=== PATIENT | female | born 1985 | race Caucasian/White ===

== ENCOUNTER 2016-11-14 14:14 | Emergency (ER) | payer MEDICARE, MEDICAID ==
[2016-11-14 14:43] VITALS: BP 125/73
--- NOTE | 2016-11-14 15:06 | EDM.PDOC ---
ED HPI Behavioral Health - General Chief Complaint: Behavioral/Psych Stated Complaint: EVAL/ WITH SCHIZOAFFECTIVE DISORDER Time Seen by Provider: 11/14/16 14:55 Source: Reports: Patient, RN notes reviewed Exam Limitations: Reports: No limitations - History of Present Illness INITIAL COMMENTS - FREE TEXT/NARRATIVE: 30-year-old female presents emergency department a complaint of suicidal ideation, she has a plan in that he would overdose on pain medications of tramadol, she is interested in inpatient treatment does not feel safe at home - Related Data Allergies Allergy/AdvReac Type Severity Reaction Status Date / Time lurasidone HCl [From Latuda] Allergy Other Verified 10/16/16 17:50 Home Medications: Home Meds Paliperidone Palmitate [Invega Sustenna] 156 mg IM ONETIME 09/23/13 [History] LORazepam [LORazepam] 1 tab PO ASDIRECTED 10/16/16 [History] Past Medical History Other Gastrointestinal History: "rash in stomach d/t allergy to foods" Other OB/BYN History: patient "does not get a period". Neurological History: Reports: Migraines Psychiatric History: Reports: Anxiety, Depression, Emotional problems, Hallucinations, Psych Hospitalization(s), Suicide attempt, Suicidal ideation Other Psychiatric History: schizo effective disorder - Infectious Disease History Infectious Disease History: Reports: Chicken pox - Past Surgical History Female Surgical History: Reports: Cervical cryotherapy Social & Family History - Tobacco Use Smoking Status *Q: Current Every Day Smoker Years of Tobacco use: 15 Packs/Tins Daily: 2 Month Tobacco Last Used: september Second Hand Smoke Exposure: Yes - Caffeine Use Caffeine Use: Reports: Coffee, Energy drinks, Soda - Alcohol Use Days Per Week of Alcohol Use: 0 - Recreational Drug Use Recreational Drug Use: No Recreational Drug Type: Reports: Marijuana/Hashish Recreational Drug Use Frequency: Monthly ED ROS GENERAL - Review of Systems Review Of Systems: See Below Constitutional: Reports: no symptoms Psychiatric: Reports: Depression, Suicidal ideation ED EXAM, BEHAVIORAL HEALTH - Physical Exam Exam: See Below Exam Limited By: No limitations General Appearance: alert, WD/WN, no apparent distress Eye Exam: bilateral eye: normal inspection Respiratory/Chest: no respiratory distress, lungs clear, normal breath sounds, no accessory muscle use Cardiovascular: regular rate, rhythm, no murmur Psychiatric: alert, flat affect, withdrawn, suicidal plan, suicidal thoughts COURSE, BEHAVIORAL HEALTH COMP - Course Vital Signs: Last Vital Signs Temp 96.6 F 11/14/16 14:42 Pulse 107 H 11/14/16 14:42 Resp 16 11/14/16 14:42 BP 125/73 11/14/16 14:42 Pulse Ox 97 11/14/16 14:42 Orders, Labs, Meds: Laboratory Tests 11/14/16 11/14/16 11/14/16 Range/Units 15:09 15:09 15:09 WBC (4.5-11.0) K/uL RBC (3.30-5.50) M/uL Hgb (12.0-15.0) g/dL Hct (36.0-48.0) % MCV (80-98) fL MCH (27-31) pg MCHC (32-36) % Plt Count (150-400) K/uL Neut % (Auto) (36-66) % Lymph % (Auto) (24-44) % [place] % (Auto) (2-6) % Eos % (Auto) (2-4) % Baso % (Auto) (0-1) % Sodium (140-148) mmol/L Potassium (3.6-5.2) mmol/L Chloride (100-108) mmol/L Carbon Dioxide (21-32) mmol/L Anion Gap (5.0-14.0) mmol/L BUN (7-18) mg/dL Creatinine (0.6-1.0) mg/dL Est Cr Clr Drug Dosing mL/min Estimated GFR (MDRD) (>60) Glucose (74-106) mg/dL Calcium (8.5-10.1) mg/dL Total Bilirubin (0.2-1.0) mg/dL AST (15-37) U/L ALT (12-78) U/L Alkaline Phosphatase (46-116) U/L Total Protein (6.4-8.2) g/dL Albumin (3.4-5.0) g/dL Globulin (2.3-3.5) g/dL Albumin/Globulin Ratio (1.2-2.2) TSH, Ultra Sensitive (0.358-3.740) uIU/mL Urine Color Yellow Urine Appearance Clear Urine pH 7.0 (4.5-8.0) Ur Specific [place] 1.010 (1.008-1.030) Urine Protein Negative (NEGATIVE) mg/dL Urine Glucose (UA) Normal (NEGATIVE) mg/dL Urine Ketones Negative (NEGATIVE) mg/dL Urine Occult Blood Negative (NEGATIVE) Urine Nitrite Negative (NEGATIVE) Urine Bilirubin Negative (NEGATIVE) Urine Urobilinogen Normal (NORMAL) mg/dL Ur Leukocyte Esterase Negative (NEGATIVE) Urine HCG, Qual Negative Urine Opiates Screen Negative (NEGATIVE) Ur Oxycodone Screen Negative (NEGATIVE) Urine Methadone Screen Negative (NEGATIVE) Ur Propoxyphene Screen Negative (NEGATIVE) Ur Barbiturates Screen Negative (NEGATIVE) Ur Tricyclics Screen Negative (NEGATIVE) Ur Phencyclidine Scrn Negative (NEGATIVE) Ur Amphetamine Screen Negative (NEGATIVE) U Methamphetamines Scrn Negative (NEGATIVE) Urine MDMA Screen Negative (NEGATIVE) U Benzodiazepines Scrn Negative (NEGATIVE) U Cocaine Metab Screen Negative (NEGATIVE) U Marijuana (THC) Screen Negative (NEGATIVE) Ethyl Alcohol mg/dL 11/14/16 11/14/16 11/14/16 Range/Units 15:11 15:11 15:11 WBC 8.5 (4.5-11.0) K/uL RBC 5.12 (3.30-5.50) M/uL Hgb 15.7 H (12.0-15.0) g/dL Hct 47.5 (36.0-48.0) % MCV 93 (80-98) fL MCH 31 (27-31) pg MCHC 33 (32-36) % Plt Count 226 (150-400) K/uL Neut % (Auto) 72 H (36-66) % Lymph % (Auto) 21 L (24-44) % [place] % (Auto) 5 (2-6) % Eos % (Auto) 1 L (2-4) % Baso % (Auto) 1 (0-1) % Sodium 139 L (140-148) mmol/L Potassium 3.7 (3.6-5.2) mmol/L Chloride 104 (100-108) mmol/L Carbon Dioxide 25 (21-32) mmol/L Anion Gap 13.7 (5.0-14.0) mmol/L BUN 8 (7-18) mg/dL Creatinine 0.9 (0.6-1.0) mg/dL Est Cr Clr Drug Dosing 80.22 mL/min Estimated GFR (MDRD) > 60 (>60) Glucose 143 H (74-106) mg/dL Calcium 8.6 (8.5-10.1) mg/dL Total Bilirubin 1.3 H (0.2-1.0) mg/dL AST 18 (15-37) U/L ALT 36 (12-78) U/L Alkaline Phosphatase 73 (46-116) U/L Total Protein 7.1 (6.4-8.2) g/dL Albumin 4.0 (3.4-5.0) g/dL Globulin 3.1 (2.3-3.5) g/dL Albumin/Globulin Ratio 1.3 (1.2-2.2) TSH, Ultra Sensitive (0.358-3.740) uIU/mL Urine Color Urine Appearance Urine pH (4.5-8.0) Ur Specific [place] (1.008-1.030) Urine Protein (NEGATIVE) mg/dL Urine Glucose (UA) (NEGATIVE) mg/dL Urine Ketones (NEGATIVE) mg/dL Urine Occult Blood (NEGATIVE) Urine Nitrite (NEGATIVE) Urine Bilirubin (NEGATIVE) Urine Urobilinogen (NORMAL) mg/dL Ur Leukocyte Esterase (NEGATIVE) Urine HCG, Qual Urine Opiates Screen (NEGATIVE) Ur Oxycodone Screen (NEGATIVE) Urine Methadone Screen (NEGATIVE) Ur Propoxyphene Screen (NEGATIVE) Ur Barbiturates Screen (NEGATIVE) Ur Tricyclics Screen (NEGATIVE) Ur Phencyclidine Scrn (NEGATIVE) Ur Amphetamine Screen (NEGATIVE) U Methamphetamines Scrn (NEGATIVE) Urine MDMA Screen (NEGATIVE) U Benzodiazepines Scrn (NEGATIVE) U Cocaine Metab Screen (NEGATIVE) U Marijuana (THC) Screen (NEGATIVE) Ethyl Alcohol < 3 mg/dL 11/14/16 Range/Units 16:00 WBC (4.5-11.0) K/uL RBC (3.30-5.50) M/uL Hgb (12.0-15.0) g/dL Hct (36.0-48.0) % MCV (80-98) fL MCH (27-31) pg MCHC (32-36) % Plt Count (150-400) K/uL Neut % (Auto) (36-66) % Lymph % (Auto) (24-44) % [place] % (Auto) (2-6) % Eos % (Auto) (2-4) % Baso % (Auto) (0-1) % Sodium (140-148) mmol/L Potassium (3.6-5.2) mmol/L Chloride (100-108) mmol/L Carbon Dioxide (21-32) mmol/L Anion Gap (5.0-14.0) mmol/L BUN (7-18) mg/dL Creatinine (0.6-1.0) mg/dL Est Cr Clr Drug Dosing mL/min Estimated GFR (MDRD) (>60) Glucose (74-106) mg/dL Calcium (8.5-10.1) mg/dL Total Bilirubin (0.2-1.0) mg/dL AST (15-37) U/L ALT (12-78) U/L Alkaline Phosphatase (46-116) U/L Total Protein (6.4-8.2) g/dL Albumin (3.4-5.0) g/dL Globulin (2.3-3.5) g/dL Albumin/Globulin Ratio (1.2-2.2) TSH, Ultra Sensitive 1.190 (0.358-3.740) uIU/mL Urine Color Urine Appearance Urine pH (4.5-8.0) Ur Specific [place] (1.008-1.030) Urine Protein (NEGATIVE) mg/dL Urine Glucose (UA) (NEGATIVE) mg/dL Urine Ketones (NEGATIVE) mg/dL Urine Occult Blood (NEGATIVE) Urine Nitrite (NEGATIVE) Urine Bilirubin (NEGATIVE) Urine Urobilinogen (NORMAL) mg/dL Ur Leukocyte Esterase (NEGATIVE) Urine HCG, Qual Urine Opiates Screen (NEGATIVE) Ur Oxycodone Screen (NEGATIVE) Urine Methadone Screen (NEGATIVE) Ur Propoxyphene Screen (NEGATIVE) Ur Barbiturates Screen (NEGATIVE) Ur Tricyclics Screen (NEGATIVE) Ur Phencyclidine Scrn (NEGATIVE) Ur Amphetamine Screen (NEGATIVE) U Methamphetamines Scrn (NEGATIVE) Urine MDMA Screen (NEGATIVE) U Benzodiazepines Scrn (NEGATIVE) U Cocaine Metab Screen (NEGATIVE) U Marijuana (THC) Screen (NEGATIVE) Ethyl Alcohol mg/dL Medications Discontinued Medications Generic Name Dose Route Start Last Admin Trade Name Freq PRN Reason Stop Dose Admin Nicotine 21 mg 11/14/16 15:11 11/14/16 15:25 Habitrol TRDERM 11/14/16 15:12 21 mg ONETIME ONE Administration Departure - Departure Time of Disposition: 16:56 Disposition: DC/Tfer to Psych Hosp/Unit 65 Condition: good Clinical Impression: Suicidal ideation Forms: ED Department Discharge - Assessment/Plan Plan: Assessment Acuity = acute Site and laterality = suicidal ideation with plan complicated in a patient with schizoaffective disorder Etiology = probably related to ongoing depression Manifestations = none Location of injury = home Lab values = CBC, CMP, thyroid, urinalysis, urine drug screen and alcohol all normal Plan We were able to gain acceptance at [facility] she will be transported via [facility] psychiatric transport Patient was in agreement with the plan all questions were answered, This note was dictated using [employer] voice recognition software please call with any questions.
[2016-11-14] MEDS ORDERED: Nicotine 21 MG/24 Hr Patch TRDERM ONE (15:11)
== END 2016-11-14 18:33 ==
LOC: JP.ED 14:14
DX: R45.851 Suicidal ideations (principal); F17.210 Nicotine dependence, cigarettes, uncomplicated; Z88.8 Allergy status to other drugs, medicaments and biological substances; Z79.899 Other long term (current) drug therapy; Z98.890 Other specified postprocedural states
CPT/HCPCS: 36415; 80053; 80305; 81003; 81025; 84443; 85025; 99283; 99285; A9270; G0480

== ENCOUNTER 2017-06-25 22:08 | Emergency (ER) | payer MEDICARE, MEDICAID ==
--- NOTE | 2017-06-25 22:56 | EDM.PDOCBH ---
ED HPI GENERAL MEDICAL PROBLEM - General Chief Complaint: Behavioral/Psych Stated Complaint: EVAL Time Seen by Provider: 06/25/17 22:20 Source of Information: Reports: Patient History Limitations: Reports: No Limitations - History of Present Illness INITIAL COMMENTS - FREE TEXT/NARRATIVE: 31 years old female patient presented with chief complaint of suicidal thoughts. Has been going on for almost 2 weeks.. She think about overdosing on her pills at home. She have a history of recurrent suicidal thoughts. Previous inpatient hospitalization for suicidal thoughts. Never had suicidal attempt. She have a history of schizoaffective disorder and auditory hallucination. Denies any drug or alcohol use. Denies any homicidal thoughts. She is feeling down because she is broke and had no family and has nobody around. - Related Data Allergies Allergy/AdvReac Type Severity Reaction Status Date / Time lurasidone HCl [From Latuda] Allergy Other Verified 06/25/17 22:28 Home Meds: Home Meds *Invega Sustenna 06/25/17 [History] Past Medical History - Past Health History Medical/Surgical History: Denies Medical/Surgical History Other Gastrointestinal History: "rash in stomach d/t allergy to foods" Other OB/BYN History: patient "does not get a period". Neurological History: Reports: Migraines Psychiatric History: Reports: Anxiety, Depression, Emotional Problems, Hallucinations, Psych Hospitalization(s), Schizophrenia, Suicide Attempt, Suicidal Ideation Other Psychiatric History: schizo effective disorder - Infectious Disease History Infectious Disease History: Reports: Chicken Pox - Past Surgical History Female Surgical History: Reports: Cervical Cryotherapy Social & Family History - Tobacco Use Smoking Status *Q: Unknown Ever Smoked Years of Tobacco use: 15 Packs/Tins Daily: 2 Month Tobacco Last Used: september Second Hand Smoke Exposure: Yes - Caffeine Use Caffeine Use: Reports: Coffee, Energy Drinks, Soda - Alcohol Use Days Per Week of Alcohol Use: 0 - Recreational Drug Use Recreational Drug Use: No Recreational Drug Type: Reports: Marijuana/Hashish Recreational Drug Use Frequency: Monthly ED ROS GENERAL - Review of Systems Review Of Systems: ROS reveals no pertinent complaints other than HPI. ED EXAM, BEHAVIORAL HEALTH - Physical Exam Exam: See Below Exam Limited By: No Limitations General Appearance: Alert Head: Atraumatic, Normocephalic Neck: Normal Inspection, Supple, Non-Tender, Full Range of Motion Respiratory/Chest: No Respiratory Distress, Lungs Clear, Normal Breath Sounds, No Accessory Muscle Use, Chest Non-Tender Cardiovascular: Normal Peripheral Pulses, Regular Rate, Rhythm, No Edema, No Gallop, No JVD, No Murmur, No Rub GI/Abdominal: Normal Bowel Sounds, Soft, Non-Tender, No Organomegaly, No Distention, No Abnormal Bruit, No Mass Extremities: Normal Inspection, Normal Range of Motion, Non-Tender, Normal Capillary Refill, No Pedal Edema Neurological: Alert, Normal Mood/Affect, CN II-XII Intact, Normal Cognition, Normal Gait, Normal Reflexes, No Motor/Sensory Deficits, Oriented x 3 Psychiatric: Alert, Depressed Mood, Suicidal Plan, Suicidal Thoughts, Auditory Hallucinations Skin Exam: Warm, Dry, Intact COURSE, BEHAVIORAL HEALTH COMP - Course Vital Signs: Last Vital Signs Temp 37.0 C 06/25/17 22:17 Pulse 96 06/25/17 22:17 Resp 15 06/25/17 22:17 BP 128/76 06/25/17 22:17 Pulse Ox 96 06/25/17 22:17 Orders, Labs, Meds: Active Orders 24 hr Category Date Time Status Behavioral Health Evaluation [CONS] Routine Cons 06/25/17 22:47 Active Restraint Initiate Non-VIOL/Non-SD [OM.PC] Stat Oth 06/25/17 22:49 Ordered Laboratory Tests 06/25/17 06/25/17 06/25/17 Range/Units 22:58 22:58 22:58 WBC 11.6 H (4.5-11.0) K/uL RBC 4.95 (3.30-5.50) M/uL Hgb 15.1 H (12.0-15.0) g/dL Hct 45.3 (36.0-48.0) % MCV 92 (80-98) fL MCH 31 (27-31) pg MCHC 33 (32-36) % Plt Count 270 (150-400) K/uL Neut % (Auto) 64 (36-66) % Lymph % (Auto) 28 (24-44) % [place] % (Auto) 7 H (2-6) % Eos % (Auto) 2 (2-4) % Baso % (Auto) 0 (0-1) % Sodium 141 (140-148) mmol/L Potassium 3.4 L (3.6-5.2) mmol/L Chloride 106 (100-108) mmol/L Carbon Dioxide 26 (21-32) mmol/L Anion Gap 12.4 (5.0-14.0) mmol/L BUN 6 L (7-18) mg/dL Creatinine 0.8 (0.6-1.0) mg/dL Est Cr Clr Drug Dosing 88.79 mL/min Estimated GFR (MDRD) > 60 (>60) Glucose 87 (74-106) mg/dL Calcium 8.5 (8.5-10.1) mg/dL Urine HCG, Qual Salicylates (2.0-20.0) mg/dL Urine Opiates Screen (NEGATIVE) Ur Oxycodone Screen (NEGATIVE) Urine Methadone Screen (NEGATIVE) Ur Propoxyphene Screen (NEGATIVE) Acetaminophen (10.0-30.0) ug/mL Ur Barbiturates Screen (NEGATIVE) Ur Tricyclics Screen (NEGATIVE) Ur Phencyclidine Scrn (NEGATIVE) Ur Amphetamine Screen (NEGATIVE) U Methamphetamines Scrn (NEGATIVE) Urine MDMA Screen (NEGATIVE) U Benzodiazepines Scrn (NEGATIVE) U Cocaine Metab Screen (NEGATIVE) U Marijuana (THC) Screen (NEGATIVE) Ethyl Alcohol < 3 mg/dL 06/25/17 06/25/17 06/25/17 Range/Units 22:58 22:58 23:12 WBC (4.5-11.0) K/uL RBC (3.30-5.50) M/uL Hgb (12.0-15.0) g/dL Hct (36.0-48.0) % MCV (80-98) fL MCH (27-31) pg MCHC (32-36) % Plt Count (150-400) K/uL Neut % (Auto) (36-66) % Lymph % (Auto) (24-44) % [place] % (Auto) (2-6) % Eos % (Auto) (2-4) % Baso % (Auto) (0-1) % Sodium (140-148) mmol/L Potassium (3.6-5.2) mmol/L Chloride (100-108) mmol/L Carbon Dioxide (21-32) mmol/L Anion Gap (5.0-14.0) mmol/L BUN (7-18) mg/dL Creatinine (0.6-1.0) mg/dL Est Cr Clr Drug Dosing mL/min Estimated GFR (MDRD) (>60) Glucose (74-106) mg/dL Calcium (8.5-10.1) mg/dL Urine HCG, Qual Salicylates 3.3 (2.0-20.0) mg/dL Urine Opiates Screen Negative (NEGATIVE) Ur Oxycodone Screen Negative (NEGATIVE) Urine Methadone Screen Negative (NEGATIVE) Ur Propoxyphene Screen Negative (NEGATIVE) Acetaminophen 0.0 L (10.0-30.0) ug/mL Ur Barbiturates Screen Negative (NEGATIVE) Ur Tricyclics Screen Negative (NEGATIVE) Ur Phencyclidine Scrn Negative (NEGATIVE) Ur Amphetamine Screen Negative (NEGATIVE) U Methamphetamines Scrn Negative (NEGATIVE) Urine MDMA Screen Negative (NEGATIVE) U Benzodiazepines Scrn Negative (NEGATIVE) U Cocaine Metab Screen Negative (NEGATIVE) U Marijuana (THC) Screen Negative (NEGATIVE) Ethyl Alcohol mg/dL 06/25/17 Range/Units 23:12 WBC (4.5-11.0) K/uL RBC (3.30-5.50) M/uL Hgb (12.0-15.0) g/dL Hct (36.0-48.0) % MCV (80-98) fL MCH (27-31) pg MCHC (32-36) % Plt Count (150-400) K/uL Neut % (Auto) (36-66) % Lymph % (Auto) (24-44) % [place] % (Auto) (2-6) % Eos % (Auto) (2-4) % Baso % (Auto) (0-1) % Sodium (140-148) mmol/L Potassium (3.6-5.2) mmol/L Chloride (100-108) mmol/L Carbon Dioxide (21-32) mmol/L Anion Gap (5.0-14.0) mmol/L BUN (7-18) mg/dL Creatinine (0.6-1.0) mg/dL Est Cr Clr Drug Dosing mL/min Estimated GFR (MDRD) (>60) Glucose (74-106) mg/dL Calcium (8.5-10.1) mg/dL Urine HCG, Qual Negative Salicylates (2.0-20.0) mg/dL Urine Opiates Screen (NEGATIVE) Ur Oxycodone Screen (NEGATIVE) Urine Methadone Screen (NEGATIVE) Ur Propoxyphene Screen (NEGATIVE) Acetaminophen (10.0-30.0) ug/mL Ur Barbiturates Screen (NEGATIVE) Ur Tricyclics Screen (NEGATIVE) Ur Phencyclidine Scrn (NEGATIVE) Ur Amphetamine Screen (NEGATIVE) U Methamphetamines Scrn (NEGATIVE) Urine MDMA Screen (NEGATIVE) U Benzodiazepines Scrn (NEGATIVE) U Cocaine Metab Screen (NEGATIVE) U Marijuana (THC) Screen (NEGATIVE) Ethyl Alcohol mg/dL Medications Discontinued Medications Generic Name Dose Route Start Last Admin Trade Name Azeem PRN Reason Stop Dose Admin Nicotine 14 mg 06/25/17 23:20 06/25/17 23:45 Habitrol TRDERM 06/25/17 23:21 14 mg ONETIME ONE Administration Medical Clearance: 06/26/17 04:26 Patient was seen and examined shortly after arrival. Suicidal precaution. Crisis team has been consulted. They evaluated the patient. I am concerned about the patient's safety and I think she needed inpatient psychiatric evaluation. Patient was accepted by margie in [facility] at [place]. Stable for transfer. Departure - Departure Time of Disposition: 04:28 Disposition: DC/Tfer to [facility] [place]04 Condition: Good Clinical Impression: Suicidal ideations - Discharge Information Referrals: PCP,None [Primary Care Provider] - Forms: ED Department Discharge - My Orders Last 24 Hours: My Active Orders 06/25/17 22:47 Behavioral Health Evaluation [CONS] Routine 06/25/17 22:49 Restraint Initiate Non-VIOL/Non-SD [OM.PC] Stat - Assessment/Plan Last 24 Hours: My Active Orders 06/25/17 22:47 Behavioral Health Evaluation [CONS] Routine 06/25/17 22:49 Restraint Initiate Non-VIOL/Non-SD [OM.PC] Stat Plan: Transferred to [facility] at [facility]
[2017-06-25] MEDS ORDERED: Nicotine 14 MG/24 Hr Patch TRDERM ONE (23:20)
[2017-06-26 07:45] VITALS: BP 114/80
== END 2017-06-26 07:40 ==
LOC: JP.ED 22:08
DX: R45.851 Suicidal ideations (principal); Z88.8 Allergy status to other drugs, medicaments and biological substances; F25.9 Schizoaffective disorder, unspecified; R44.0 Auditory hallucinations
CPT/HCPCS: 36415; 80048; 80305; 81025; 85025; 99284; 99285; A9270; G0480

== ENCOUNTER 2018-03-24 16:31 | Emergency (ER) | payer MEDICARE, MEDICAID ==
[2018-03-24 16:48] VITALS: BP 119/83
[2018-03-24] MEDS ORDERED: Nicotine 21 MG/24 Hr Patch TRDERM ONE (17:19)
--- NOTE | 2018-03-24 17:25 | EDM.PDOCBH ---
ED HPI GENERAL MEDICAL PROBLEM - General Chief Complaint: Behavioral/Psych Stated Complaint: WANTS 72 HR HOLD Time Seen by Provider: 03/24/18 17:00 Source of Information: Reports: Patient History Limitations: Reports: No Limitations - History of Present Illness INITIAL COMMENTS - FREE TEXT/NARRATIVE: Caroline presents today for complaints of suicidal thoughts. She denies having a plan or wanting to kill herself. She reports a history of schizoaffective disorder and auditory hallucinations which she feels is not well controlled at this time. She states she has been having financial difficulties for the past 2 months. She reports taking her prescribed medications as directed. She denies illicit drug use. - Related Data Allergies Allergy/AdvReac Type Severity Reaction Status Date / Time lurasidone HCl [From Latuda] Allergy Other Verified 03/24/18 16:51 Home Meds: Home Meds *Invega Sustenna 1 injection INJECT ASDIRECTED 06/25/17 [History] Past Medical History - Past Health History Medical/Surgical History: Denies Medical/Surgical History Other Gastrointestinal History: "rash in stomach d/t allergy to foods" Other BIOTECHNICIAN History: patient "does not get a period". Neurological History: Reports: Migraines Psychiatric History: Reports: Anxiety, Depression, Emotional Problems, Hallucinations, Psych Hospitalization(s), Schizophrenia, Suicide Attempt, Suicidal Ideation Other Psychiatric History: schizo effective disorder - Infectious Disease History Infectious Disease History: Reports: Chicken Pox - Past Surgical History Female Surgical History: Reports: Cervical Cryotherapy Social & Family History - Tobacco Use Smoking Status *Q: Current Every Day Smoker Years of Tobacco use: 15 Packs/Tins Daily: 2 - Caffeine Use Caffeine Use: Reports: Coffee, Soda - Recreational Drug Use Recreational Drug Use: No ED ROS GENERAL - Review of Systems Review Of Systems: See Below Constitutional: Denies: Fever, Chills, Malaise, Weakness HEENT: Reports: No Symptoms Respiratory: Reports: No Symptoms Cardiovascular: Reports: No Symptoms Endocrine: Reports: No Symptoms GI/Abdominal: Reports: No Symptoms : Reports: No Symptoms Musculoskeletal: Reports: No Symptoms Skin: Reports: No Symptoms Neurological: Denies: Confusion, Dizziness, Headache, Numbness, Seizure, Tingling, Difficulty Walking, Weakness Psychiatric: Reports: Agitation, Anxiety, Depression, Hallucinations Hematologic/Lymphatic: Reports: No Symptoms Immunologic: Reports: No Symptoms ED EXAM, BEHAVIORAL HEALTH - Physical Exam Exam: See Below Text/Narrative:: Caroline presents today for complaints of thoughts of suicide. She also states her schizoaffective disorder is not currently well controlled and she has had an increase of personal/financial stress. Exam Limited By: No Limitations General Appearance: Alert, WD/WN, Mild Distress Eye Exam: Bilateral Eye: EOMI, Normal Inspection, PERRL Ears: Normal External Exam, Normal Canal, Hearing Grossly Normal, Normal TMs Nose: Normal Inspection, Normal Mucosa, No Blood Throat/Mouth: Normal Inspection, Normal Lips, Normal Gums, Normal Oropharynx, Normal Voice, No Airway Compromise Head: Atraumatic, Normocephalic Neck: Normal Inspection, Supple, Non-Tender, Full Range of Motion. No: Lymphadenopathy (R), Lymphadenopathy (L) Respiratory/Chest: No Respiratory Distress, Lungs Clear, Normal Breath Sounds, No Accessory Muscle Use, Chest Non-Tender Cardiovascular: Normal Peripheral Pulses, Regular Rate, Rhythm, No Edema, No Murmur, No Rub Back Exam: Normal Inspection, Full Range of Motion. No: CVA Tenderness (R), CVA Tenderness (L) Extremities: Normal Inspection, Normal Range of Motion, Non-Tender, No Pedal Edema, Normal Capillary Refill Neurological: Alert, CN II-XII Intact, Normal Cognition, Normal Gait, Normal Reflexes, No Motor/Sensory Deficits, Oriented x 3 Psychiatric: Alert, Normal Cognition, Oriented, Depressed Mood, Flat Affect, Restless, Auditory Hallucinations Skin Exam: Warm, Dry, Intact, Normal color, No rash COURSE, BEHAVIORAL HEALTH COMP - Course Vital Signs: Last Vital Signs Temp 36.7 C 03/24/18 16:52 Pulse 123 H 03/24/18 16:52 Resp 16 03/24/18 16:52 BP 119/83 03/24/18 16:52 Pulse Ox 95 03/24/18 16:52 Orders, Labs, Meds: Active Orders 24 hr Category Date Time Status DRUG SCREEN, URINE [URCHEM] Stat Lab 03/24/18 17:18 Ordered HCG QUALITATIVE,URINE [URCHEM] Stat Lab 03/24/18 17:18 Ordered Laboratory Tests 03/24/18 03/24/18 03/24/18 Range/Units 17:18 17:18 17:29 WBC 8.7 (4.5-11.0) K/uL RBC 5.16 (3.30-5.50) M/uL Hgb 16.2 H (12.0-15.0) g/dL Hct 47.6 (36.0-48.0) % MCV 92 (80-98) fL MCH 31 (27-31) pg MCHC 34 (32-36) % Plt Count 236 (150-400) K/uL Neut % (Auto) 71 H (36-66) % Lymph % (Auto) 21 L (24-44) % [place] % (Auto) 6 (2-6) % Eos % (Auto) 2 (2-4) % Baso % (Auto) 1 (0-1) % Sodium (140-148) mmol/L Potassium (3.6-5.2) mmol/L Chloride (100-108) mmol/L Carbon Dioxide (21-32) mmol/L Anion Gap (5.0-14.0) mmol/L BUN (7-18) mg/dL Creatinine (0.6-1.0) mg/dL Est Cr Clr Drug Dosing mL/min Estimated GFR (MDRD) (>60) Glucose (74-106) mg/dL Calcium (8.5-10.1) mg/dL Urine HCG, Qual Negative Salicylates (2.0-20.0) mg/dL Urine Opiates Screen Negative (NEGATIVE) Ur Oxycodone Screen Negative (NEGATIVE) Urine Methadone Screen Negative (NEGATIVE) Ur Propoxyphene Screen Negative (NEGATIVE) Acetaminophen (10.0-30.0) ug/mL Ur Barbiturates Screen Negative (NEGATIVE) Ur Tricyclics Screen Negative (NEGATIVE) Ur Phencyclidine Scrn Negative (NEGATIVE) Ur Amphetamine Screen Negative (NEGATIVE) U Methamphetamines Scrn Negative (NEGATIVE) Urine MDMA Screen Negative (NEGATIVE) U Benzodiazepines Scrn Negative (NEGATIVE) U Cocaine Metab Screen Negative (NEGATIVE) U Marijuana (THC) Screen Negative (NEGATIVE) 03/24/18 03/24/18 Range/Units 17:29 17:29 WBC (4.5-11.0) K/uL RBC (3.30-5.50) M/uL Hgb (12.0-15.0) g/dL Hct (36.0-48.0) % MCV (80-98) fL MCH (27-31) pg MCHC (32-36) % Plt Count (150-400) K/uL Neut % (Auto) (36-66) % Lymph % (Auto) (24-44) % [place] % (Auto) (2-6) % Eos % (Auto) (2-4) % Baso % (Auto) (0-1) % Sodium 139 L (140-148) mmol/L Potassium 4.0 (3.6-5.2) mmol/L Chloride 104 (100-108) mmol/L Carbon Dioxide 24 (21-32) mmol/L Anion Gap 15.0 H (5.0-14.0) mmol/L BUN 7 (7-18) mg/dL Creatinine 0.9 (0.6-1.0) mg/dL Est Cr Clr Drug Dosing 78.21 mL/min Estimated GFR (MDRD) > 60 (>60) Glucose 109 H (74-106) mg/dL Calcium 9.1 (8.5-10.1) mg/dL Urine HCG, Qual Salicylates 3.1 (2.0-20.0) mg/dL Urine Opiates Screen (NEGATIVE) Ur Oxycodone Screen (NEGATIVE) Urine Methadone Screen (NEGATIVE) Ur Propoxyphene Screen (NEGATIVE) Acetaminophen 0.0 L (10.0-30.0) ug/mL Ur Barbiturates Screen (NEGATIVE) Ur Tricyclics Screen (NEGATIVE) Ur Phencyclidine Scrn (NEGATIVE) Ur Amphetamine Screen (NEGATIVE) U Methamphetamines Scrn (NEGATIVE) Urine MDMA Screen (NEGATIVE) U Benzodiazepines Scrn (NEGATIVE) U Cocaine Metab Screen (NEGATIVE) U Marijuana (THC) Screen (NEGATIVE) Medications Discontinued Medications Generic Name Dose Route Start Last Admin Trade Name Azeem PRN Reason Stop Dose Admin Nicotine 21 mg 03/24/18 17:19 03/24/18 17:29 Habitrol TRDERM 03/24/18 17:20 21 mg ONETIME ONE Administration Patient lab work reviewed, no significant findings. Re-Assessment/Re-Exam: Patient provided food and oral liquids, warm blankets. Crisis team contacted to come and complete assessment. 03/24/18 20:47 production worker completed assessment, patient states she does not want to kill herself, she states she has support and is willing to complete safety contract. Patient will be discharged to home with her Aunt. Departure - Departure Time of Disposition: 20:52 Disposition: Home, Self-Care 01 Condition: Good Clinical Impression: Depressive disorder, Schizoaffective disorder - Discharge Information *PRESCRIPTION DRUG MONITORING PROGRAM REVIEWED*: Not Applicable *COPY OF PRESCRIPTION DRUG MONITORING REPORT IN PATIENT [place]ORE[place]: Not Applicable Instructions: Suicidal Feelings: How to Help Yourself Referrals: PCPFreddy [Primary Care Provider] - Forms: ED Department Discharge Additional Instructions: You have been evaluated in the emergency room by medical staff and a mechanical maintenance worker. Safety plan completed with crisis team. Keep yourself hydrated, eat a regular diet. Follow up with your primary provider in the next 3 to 7 days for a recheck. Follow up with Dr. Simental - behavioral health provider in the next 7 days. Return to the emergency room for worsening, issues or concerns. - My Orders Last 24 Hours: My Active Orders 03/24/18 17:18 DRUG SCREEN, URINE [URCHEM] Stat HCG QUALITATIVE,URINE [URCHEM] Stat - Assessment/Plan Last 24 Hours: My Active Orders 03/24/18 17:18 DRUG SCREEN, URINE [URCHEM] Stat HCG QUALITATIVE,URINE [URCHEM] Stat Assessment:: Depressive disorder, Schizoaffective disorder Plan: Patient evaluated in the emergency room by medical staff and a mechanical maintenance worker. Safety plan completed with crisis team. Keep hydrated, eat a regular diet. Follow up with primary provider in the next 3 to 7 days for a recheck. Follow up with Dr. Simental - behavioral health provider in the next 7 days. Return to the emergency room for worsening, issues or concerns.
== END 2018-03-24 21:30 | disposition home or self-care (01) ==
LOC: JP.ED 16:31
DX: F32.9 Major depressive disorder, single episode, unspecified (principal); F25.9 Schizoaffective disorder, unspecified; F17.210 Nicotine dependence, cigarettes, uncomplicated; Z88.8 Allergy status to other drugs, medicaments and biological substances; Z79.899 Other long term (current) drug therapy
CPT/HCPCS: 36415; 80048; 80305; 81025; 85025; 99285; A9270; G0480

== ENCOUNTER 2018-05-22 20:06 | Emergency (ER) | payer MEDICARE, MEDICAID ==
[2018-05-22 20:16] VITALS: BP 128/91
[2018-05-22] MEDS ORDERED: Nicotine 21 MG/24 Hr Patch TRDERM ONE (20:53)
--- NOTE | 2018-05-22 21:10 | EDM.PDOCBH ---
ED HPI GENERAL MEDICAL PROBLEM - General Chief Complaint: Behavioral/Psych Stated Complaint: EVAL Time Seen by Provider: 05/22/18 20:46 Source of Information: Reports: Patient, RN Notes Reviewed History Limitations: Reports: No Limitations - History of Present Illness INITIAL COMMENTS - FREE TEXT/NARRATIVE: 32-year-old female presents to the emergency department today with complaint of suicidal ideation with auditory hallucinations. She has a known history of schizoaffective disorder is currently residing by herself but feels her symptoms have been getting worse over the last couple weeks. She does have a plan where she would take much of her medications. She is requesting placement and would like to go to prison no longer feels safe at home by herself denies pain Pain Score (Numeric/FACES): 0 - Related Data Allergies Allergy/AdvReac Type Severity Reaction Status Date / Time lurasidone HCl [From Latuda] Allergy Other Verified 05/22/18 20:15 Home Meds: Home Meds *Invega Sustenna 1 injection INJECT ASDIRECTED 06/25/17 [History] Past Medical History Gastrointestinal History: Reports: Other (See Below) Other Gastrointestinal History: "rash in stomach d/t allergy to foods" IRON SETTER History: Reports: Other (See Below) Other IRON SETTER History: patient "does not get a period". Neurological History: Reports: Migraines Psychiatric History: Reports: Anxiety, Depression, Emotional Problems, Hallucinations, Psych Hospitalization(s), Schizophrenia, Suicide Attempt, Suicidal Ideation Other Psychiatric History: schizo effective disorder - Infectious Disease History Infectious Disease History: Reports: Chicken Pox - Past Surgical History Female Surgical History: Reports: Cervical Cryotherapy Social & Family History - Tobacco Use Smoking Status *Q: Current Every Day Smoker Years of Tobacco use: 17 Packs/Tins Daily: 2 - Caffeine Use Caffeine Use: Reports: Coffee, Soda - Recreational Drug Use Recreational Drug Use: Yes Drug Use in Last 12 Months: Yes Recreational Drug Type: Reports: Marijuana/Hashish Recreational Drug Use Frequency: Weekly ED ROS GENERAL - Review of Systems Review Of Systems: See Below Constitutional: Reports: No Symptoms HEENT: Reports: No Symptoms Respiratory: Reports: No Symptoms Cardiovascular: Reports: No Symptoms GI/Abdominal: Reports: No Symptoms : Reports: No Symptoms Musculoskeletal: Reports: No Symptoms Skin: Reports: No Symptoms Neurological: Reports: No Symptoms Psychiatric: Reports: Hallucinations, Suicidal Ideation. Denies: Homicidal Ideation ED EXAM, BEHAVIORAL HEALTH - Physical Exam Exam: See Below Text/Narrative:: Orientated to person place and time, appropriately dressed, well groomed, memory to recent and remote events intact, good attention and concentration, speech is of adequate rate tone and volume, good fund of knowledge, language is appropriate, Mood and affect are depressed, no pressured thoughts, positive for complains of auditory hallucinations suggesting a plan of self-harm with pill ingestion, denies homicidal ideation, no hallucinations visual , poor judgment, poor insight Exam Limited By: No Limitations General Appearance: Alert, WD/WN, No Apparent Distress Respiratory/Chest: No Respiratory Distress, Lungs Clear, Normal Breath Sounds, No Accessory Muscle Use, Chest Non-Tender Cardiovascular: Normal Peripheral Pulses, Regular Rate, Rhythm, No Edema, No Murmur COURSE, BEHAVIORAL HEALTH COMP - Course Vital Signs: Last Vital Signs Temp 98 F 05/22/18 20:16 Pulse 106 H 05/22/18 20:16 Resp 16 05/22/18 20:16 BP 128/91 H 05/22/18 20:16 Pulse Ox 100 05/22/18 20:16 Orders, Labs, Meds: Active Orders 24 hr Category Date Time Status Suicide Precautions [OM.PC] Routine Oth 05/22/18 20:52 Ordered Laboratory Tests 05/22/18 05/22/18 05/22/18 Range/Units 20:52 20:52 20:52 WBC 8.8 (4.5-11.0) K/uL RBC 4.93 (3.30-5.50) M/uL Hgb 15.4 H (12.0-15.0) g/dL Hct 45.7 (36.0-48.0) % MCV 93 (80-98) fL MCH 31 (27-31) pg MCHC 34 (32-36) % Plt Count 253 (150-400) K/uL Neut % (Auto) 61 (36-66) % Lymph % (Auto) 29 (24-44) % Kay % (Auto) 7 H (2-6) % Eos % (Auto) 2 (2-4) % Baso % (Auto) 1 (0-1) % Sodium (140-148) mmol/L Potassium (3.6-5.2) mmol/L Chloride (100-108) mmol/L Carbon Dioxide (21-32) mmol/L Anion Gap (5.0-14.0) mmol/L BUN (7-18) mg/dL Creatinine (0.6-1.0) mg/dL Est Cr Clr Drug Dosing mL/min Estimated GFR (MDRD) (>60) Glucose (74-106) mg/dL Calcium (8.5-10.1) mg/dL Total Bilirubin (0.2-1.0) mg/dL AST (15-37) U/L ALT (12-78) U/L Alkaline Phosphatase (46-116) U/L Total Protein (6.4-8.2) g/dL Albumin (3.4-5.0) g/dL Globulin (2.3-3.5) g/dL Albumin/Globulin Ratio (1.2-2.2) TSH, Ultra Sensitive (0.358-3.740) uIU/mL Urine Color Yellow Urine Appearance Slightly cloudy Urine pH 6.0 (4.5-8.0) Ur Specific [place] 1.020 (1.008-1.030) Urine Protein Trace (NEGATIVE) mg/dL Urine Glucose (UA) Normal (NEGATIVE) mg/dL Urine Ketones Negative (NEGATIVE) mg/dL Urine Occult Blood Negative (NEGATIVE) Urine Nitrite Negative (NEGATIVE) Urine Bilirubin Small (NEGATIVE) Urine Urobilinogen 4 (NORMAL) mg/dL Ur Leukocyte Esterase Small (NEGATIVE) Urine RBC 0-5 (0-5) Urine WBC 0-5 (0-5) Ur Epithelial Cells Moderate Amorphous Sediment Not seen Urine Bacteria Few Urine Mucus Not seen Urine Other Urine Opiates Screen Negative (NEGATIVE) Ur Oxycodone Screen Negative (NEGATIVE) Urine Methadone Screen Negative (NEGATIVE) Ur Propoxyphene Screen Negative (NEGATIVE) Ur Barbiturates Screen Negative (NEGATIVE) Ur Tricyclics Screen Negative (NEGATIVE) Ur Phencyclidine Scrn Negative (NEGATIVE) Ur Amphetamine Screen Negative (NEGATIVE) U Methamphetamines Scrn Negative (NEGATIVE) Urine MDMA Screen Negative (NEGATIVE) U Benzodiazepines Scrn Negative (NEGATIVE) U Cocaine Metab Screen Negative (NEGATIVE) U Marijuana (THC) Screen Negative (NEGATIVE) Ethyl Alcohol mg/dL 05/22/18 05/22/18 05/22/18 Range/Units 20:52 20:52 20:52 WBC (4.5-11.0) K/uL RBC (3.30-5.50) M/uL Hgb (12.0-15.0) g/dL Hct (36.0-48.0) % MCV (80-98) fL MCH (27-31) pg MCHC (32-36) % Plt Count (150-400) K/uL Neut % (Auto) (36-66) % Lymph % (Auto) (24-44) % Kay % (Auto) (2-6) % Eos % (Auto) (2-4) % Baso % (Auto) (0-1) % Sodium 137 L (140-148) mmol/L Potassium 3.5 L (3.6-5.2) mmol/L Chloride 104 (100-108) mmol/L Carbon Dioxide 22 (21-32) mmol/L Anion Gap 14.5 H (5.0-14.0) mmol/L BUN 9 (7-18) mg/dL Creatinine 0.8 (0.6-1.0) mg/dL Est Cr Clr Drug Dosing 87.99 mL/min Estimated GFR (MDRD) > 60 (>60) Glucose 86 (74-106) mg/dL Calcium 8.5 (8.5-10.1) mg/dL Total Bilirubin 1.0 (0.2-1.0) mg/dL AST 14 L (15-37) U/L ALT 22 (12-78) U/L Alkaline Phosphatase 80 (46-116) U/L Total Protein 6.7 (6.4-8.2) g/dL Albumin 3.6 (3.4-5.0) g/dL Globulin 3.1 (2.3-3.5) g/dL Albumin/Globulin Ratio 1.2 (1.2-2.2) TSH, Ultra Sensitive 1.520 (0.358-3.740) uIU/mL Urine Color Urine Appearance Urine pH (4.5-8.0) Ur Specific [place] (1.008-1.030) Urine Protein (NEGATIVE) mg/dL Urine Glucose (UA) (NEGATIVE) mg/dL Urine Ketones (NEGATIVE) mg/dL Urine Occult Blood (NEGATIVE) Urine Nitrite (NEGATIVE) Urine Bilirubin (NEGATIVE) Urine Urobilinogen (NORMAL) mg/dL Ur Leukocyte Esterase (NEGATIVE) Urine RBC (0-5) Urine WBC (0-5) Ur Epithelial Cells Amorphous Sediment Urine Bacteria Urine Mucus Urine Other Urine Opiates Screen (NEGATIVE) Ur Oxycodone Screen (NEGATIVE) Urine Methadone Screen (NEGATIVE) Ur Propoxyphene Screen (NEGATIVE) Ur Barbiturates Screen (NEGATIVE) Ur Tricyclics Screen (NEGATIVE) Ur Phencyclidine Scrn (NEGATIVE) Ur Amphetamine Screen (NEGATIVE) U Methamphetamines Scrn (NEGATIVE) Urine MDMA Screen (NEGATIVE) U Benzodiazepines Scrn (NEGATIVE) U Cocaine Metab Screen (NEGATIVE) U Marijuana (THC) Screen (NEGATIVE) Ethyl Alcohol < 3 mg/dL Medications Discontinued Medications Generic Name Dose Route Start Last Admin Trade Name Freq PRN Reason Stop Dose Admin Nicotine 21 mg 05/22/18 20:53 05/22/18 21:05 Habitrol TRDERM 05/22/18 20:54 21 mg ONETIME ONE Administration Departure - Departure Time of Disposition: 01:51 Disposition: DC/Tfer to Psych Hosp/Unit 65 Condition: Fair Clinical Impression: Suicidal ideation - Discharge Information Referrals: PCP,None [Primary Care Provider] - Forms: ED Department Discharge - My Orders Last 24 Hours: My Active Orders 05/22/18 20:52 Suicide Precautions [OM.PC] Routine - Assessment/Plan Last 24 Hours: My Active Orders 05/22/18 20:52 Suicide Precautions [OM.PC] Routine Plan: Assessment Acuity = acute Site and laterality = suicidal ideation complicated patient with known schizoaffective disorder with auditory hallucinations Etiology = unclear etiology Manifestations = none Location of injury = Home Lab values = CBC, CMP within normal limits TSH stable 1.52, urinalysis is negative urine drug screen negative alcohol is negative Plan We are able to gain accepted [facility] she is voluntarily going she is not on a 72 and hold excepting physician Dr. Gifford she will be transported via EMS ground This note was dictated using [employer] voice recognition software please call with any questions on syntax or grammar.
== END 2018-05-23 03:06 ==
LOC: JP.ED 20:06
DX: F25.9 Schizoaffective disorder, unspecified (principal); R45.851 Suicidal ideations; F17.210 Nicotine dependence, cigarettes, uncomplicated
CPT/HCPCS: 36415; 80053; 80305; 81001; 84443; 85025; 99285; A9270; G0480

== ENCOUNTER 2021-09-17 08:34 | Day surgery (SDC) | payer MEDICARE, MEDICAID ==
[2021-09-17] MEDS ORDERED: Propofol 200 MG/20 ML SDV ONE (08:43)
[2021-09-17] MEDS ORDERED: Lidocaine 1% 2 ML ONE (08:43)
[2021-09-17] MEDS ORDERED: fentaNYL 100 MCG/2 ML SDV ONE (08:44)
[2021-09-17] MEDS ORDERED: Midazolam 1 MG/ML 2 ML SDV ONE (08:44)
[2021-09-17] MEDS ORDERED: Dextrose 5%-Lactated Ringers 1,000 ML IV SCH (09:30)
[2021-09-17] MEDS ORDERED: Glycopyrrolate 0.2 MG/ML 2 ML SDV IVPUSH ONE (09:30)
[2021-09-17 12:50] VITALS: BP 124/85; PULSE 99
--- NOTE | 2021-09-19 12:24 | OR ---
DATE OF PROCEDURE: 09/17/2021 SURGEON: Jakob Baca MD PREOPERATIVE DIAGNOSIS: History of gastroesophageal reflux disease. POSTOPERATIVE DIAGNOSIS: History of gastroesophageal reflux disease with: 1. Large hiatal hernia (8 cm). 2. Ulcerative esophagitis. 3. Mild antral gastritis. PROCEDURE PERFORMED: Esophagogastroduodenoscopy with: 1. Biopsy of esophagogastric junction for histologic evaluation. 2. Biopsies of antrum for CLOtest. ANESTHESIA: IV sedation. INDICATION FOR PROCEDURE: A 35-year-old female presenting with worsening gastroesophageal reflux disease and presently is on Protonix 40 mg daily. She has quite a bit in the way of cough and feels that she is probably aspirating bile when she is sleeping, and she does have bile and other esophageal contents come up into the throat with some frequency. The plan is to proceed with upper GI endoscopy with biopsies as indicated. Potential risks including bleeding and perforation were discussed, and the patient wishes to proceed. DETAILS OF PROCEDURE: The patient was taken to the operating room and placed in a left lateral decubitus position. IV sedation was administered after which the upper GI endoscope was passed orally through the length of the esophagus into the stomach with retroflexion view of the fundus, and thereafter, through the pyloric channel to the junction of the third and fourth portions of the duodenum. Findings included some redness of the hypopharynx and larynx consistent with reflux. 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 There was no stricturing or signs of neoplastic change. Within the stomach, there was a small amount of retained bile. There was mild antral gastritis with patchy redness in the prepyloric region. The pyloric channel and visualized portions of the duodenum were unremarkable. At this point, biopsies were obtained from the antrum and sent for CLOtest for H pylori. Multiple biopsies were then obtained from the esophagogastric junction and sent for histologic evaluation. Minimal bleeding from the biopsy site was seen, and the procedure was then concluded. The plan at this point will be to move the patient up to b.i.d. on her Protonix dosing, and we will see her back on 09/29. She will probably be best served with an active reflux procedure, i.e., Ginger fundoplication, to avoid esophageal and pulmonary complications related to the ongoing reflux. This case was reviewed with the patient's worker postoperatively as well as the patient. Jakob Baca MD /[id number]
== END 2021-09-17 13:02 | disposition home or self-care (01) ==
LOC: JP.SDS 08:34
PROVIDERS: ATTEND Surgery
DX: K31.89 Other diseases of stomach and duodenum (principal); K29.60 Other gastritis without bleeding; K21.9 Gastro-esophageal reflux disease without esophagitis; K44.9 Diaphragmatic hernia without obstruction or gangrene; K22.10 Ulcer of esophagus without bleeding; E66.9 Obesity, unspecified; Z88.8 Allergy status to other drugs, medicaments and biological substances
CPT/HCPCS: 43239; 87081; J2250; J2704; J3010; J3490; J7121

== ENCOUNTER 2021-10-28 07:02 | Day surgery (SDC) | payer MEDICARE, MEDICAID ==
[~2021-10-28 07:02] MED LIST: Acetaminophen 500 MG Tab PO ONE
[2021-10-28] MEDS ORDERED: Dextrose 5%-Lactated Ringers 1,000 ML IV SCH (07:30)
[2021-10-28] MEDS ORDERED: Ondansetron 4 MG/2 ML SDV ONE (08:01)
[2021-10-28] MEDS ORDERED: Dexamethasone 4 MG/ML SDV ONE (08:01)
[2021-10-28] MEDS ORDERED: Glycopyrrolate 0.2 MG/ML 5 ML MDV ONE (08:01)
[2021-10-28] MEDS ORDERED: Rocuronium 50 MG/5 ML Vial ONE (08:01)
[2021-10-28] MEDS ORDERED: fentaNYL 100 MCG/2 ML SDV ONE ×5 (08:01→09:39)
[2021-10-28] MEDS ORDERED: Succinylcholine 200 MG/10 ML MDV ONE (08:01)
[2021-10-28] MEDS ORDERED: Propofol 200 MG/20 ML SDV ONE (08:01)
[2021-10-28] MEDS ORDERED: Neostigmine Methylsulfate 1 MG/ML 5 ML Syringe ONE (08:01)
[2021-10-28] MEDS ORDERED: ceFAZolin 2 GM in Premix Bag 1 BAG IV ONE (08:30)
[2021-10-28] MEDS ORDERED: Ketamine 16 MG in Sodium Chloride 0.9% 19.84 ML IV SCH (08:45)
[2021-10-28] MEDS ORDERED: Ketamine 500 MG/5 ML MDV IV SCH (08:45)
[2021-10-28] MEDS ORDERED: Ketoconazole 2% Crm 30 GM Tube ONE (09:25)
[2021-10-28] MEDS ORDERED: Bupivacaine 0.5%/EPINEPHrine 1:200,000 50 ML MDV ONE (09:38)
[2021-10-28] MEDS ORDERED: Labetalol 20 MG/4 ML Syringe ONE (09:41)
[2021-10-28] MEDS ORDERED: hydrOXYzine HCL 100 MG/2 ML SDV IM ONE (11:07)
[2021-10-28] MEDS ORDERED: Ondansetron 4 MG/2 ML SDV IVPUSH PRN (12:07)
[2021-10-28] MEDS ORDERED: HYDROmorphone 0.5 MG/0.5 ML Syringe IVPUSH PRN (12:36)
[2021-10-28] MEDS ORDERED: HYDROmorphone 1 MG/ML Syringe IV PRN (12:36)
[2021-10-28] MEDS: Dextrose 5%-Lactated Ringers 1,000 ML IV SCH ×2 (12:38→20:57)
[2021-10-28] MEDS ORDERED: Cyclobenzaprine 10 MG Tab PO PRN (12:43)
[2021-10-28] MEDS ORDERED: LORazepam 1 MG Tab PO PRN (12:44)
[2021-10-28] MEDS: HYDROmorphone 2 MG Tab PO PRN ×2 (12:56→17:03)
[2021-10-28] MEDS: Acetaminophen 500 MG Tab PO SCH ×2 (13:20→20:49)
[2021-10-28] MEDS: Nicotine 21 MG/24 Hr Patch TRDERM SCH (13:20)
[2021-10-28] MEDS ORDERED: hydrOXYzine HCl 25 MG Tab PO PRN (14:00)
[2021-10-28] MEDS ORDERED: Pantoprazole 40 MG Vial IV SCH (14:00)
[2021-10-28] MEDS: ceFAZolin 2 GM in Premix Bag 1 BAG IV SCH (16:40)
[2021-10-28] MEDS ORDERED: QUEtiapine 25 MG Tab PO SCH (21:00)
[2021-10-28] MEDS ORDERED: traZODone 50 MG Tab PO SCH (21:00)
[2021-10-29] MEDS: ceFAZolin 2 GM in Premix Bag 1 BAG IV SCH ×2 (01:20→08:01)
[2021-10-29] MEDS: Acetaminophen 500 MG Tab PO SCH ×2 (01:21→07:48)
[2021-10-29 03:33] VITALS: PULSE 113
[2021-10-29] MEDS: Dextrose 5%-Lactated Ringers 1,000 ML IV SCH (05:25)
[2021-10-29 07:58] VITALS: BP 122/82
[2021-10-29] MEDS: Nicotine 21 MG/24 Hr Patch TRDERM SCH (08:00)
== END 2021-10-29 10:50 | disposition home or self-care (01) ==
LOC: JP.MS 07:02 → JP.SDS 07:02 → UNDOADMIN 07:02 → EDSTATUS 07:15 → JP.MS 10:45 → UNDODISIN 10-29 10:50 → JP.SDS 10-29 10:50
PROVIDERS: ATTEND Surgery
DX: K21.9 Gastro-esophageal reflux disease without esophagitis (principal); K44.9 Diaphragmatic hernia without obstruction or gangrene; D17.1 Benign lipomatous neoplasm of skin and subcutaneous tissue of trunk; E66.9 Obesity, unspecified; F41.9 Anxiety disorder, unspecified; F17.210 Nicotine dependence, cigarettes, uncomplicated; Z79.899 Other long term (current) drug therapy; Z88.8 Allergy status to other drugs, medicaments and biological substances; Z68.33 Body mass index [BMI] 33.0-33.9, adult
CPT/HCPCS: 43282; A9270; C1713; C1781; C9113; J0171; J0330; J0690; J1100; J2405; J2704; J2710; J2795; J3010; J3410; J3490; J7121; 88304

== ENCOUNTER 2023-10-13 15:53 | Emergency (ER) | payer MEDICARE, MEDICAID | END 2023-10-13 17:05 | disposition left against medical advice (07) | LOC: JP.ED 15:53 | DX: Z53.21 Procedure and treatment not carried out due to patient leaving prior to being seen by health care provider (principal) ==

== ENCOUNTER 2023-10-13 18:20 | Emergency (ER) | payer MEDICARE, MEDICAID ==
[2023-10-13 18:43] VITALS: BP 148/90; PULSE 136
== END 2023-10-13 19:37 | disposition left against medical advice (07) ==
LOC: JP.ED 18:20
DX: Z53.21 Procedure and treatment not carried out due to patient leaving prior to being seen by health care provider (principal)